=== PATIENT | female | born 1945 | race Caucasian/White ===

== ENCOUNTER 2016-10-18 13:31 | Outpatient (CLI) | payer MEDICARE, OTHER ==
[2016-10-18 15:15] LABS: BILIRUBIN,URINE NEGATIVE (NEGATIVE)
[2016-10-18 15:42] LABS: UR CULTURE IF IND INDICATED
== END 2016-10-18 13:32 | disposition home or self-care (01) ==
LOC: LAB 13:31
PROVIDERS: ATTEND Student in an Organized Health Care Education/Training Program
DX: N30.00 Acute cystitis without hematuria (principal)
CPT/HCPCS: 81001; 87077; 87086